=== PATIENT | male | born 1965 | race Two or more races ===

== ENCOUNTER 2016-04-26 21:11 | Emergency (ER) | payer OTHER ==
[2016-04-27] MEDS ORDERED: IBUPROFEN 600 MG TABLET ONE (00:13)
[2016-04-27] MEDS ORDERED: CYCLOBENZAPRINE HCL 10 MG TABLET ONE (00:13)
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
== END 2016-04-27 00:27 | disposition home or self-care (01) ==
LOC: ED 21:11
DX: S16.1XXA Strain of muscle, fascia and tendon at neck level, initial encounter (principal); F17.210 Nicotine dependence, cigarettes, uncomplicated; V49.50XA Passenger injured in collision with unspecified motor vehicles in traffic accident, initial encounter; Y92.410 Unspecified street and highway as the place of occurrence of the external cause
CPT/HCPCS: 72040; 99283 ×2; A9270